=== PATIENT | female | born 2000 | race Caucasian/White ===

== ENCOUNTER 2020-06-27 20:19 | Emergency (ER) | payer SELFPAY ==
--- NOTE | 2020-06-27 21:45 | ER Document Report ---
ED Medical Screen (RME) - General Chief Complaint: Vaginal Bleeding Stated Complaint: VAGINAL BLEEDING-7 WEEKS PREG Time Seen by Provider: 06/27/20 21:41 Primary Care Provider: DONA RUGGIERO DO [Primary Care Provider] - Follow up as needed Information source: Patient Notes: Patient presents 7 weeks complaining of vaginal bleeding that started this evening. Patient is G1, P0 and has not had any care thus far. Patient denies any urinary symptoms. Patient denies any lightheadedness or dizziness. Patient does complain of pelvic cramping. Patient denies any significant medical history. I have greeted and performed a rapid initial assessment of this patient. A comprehensive ED assessment and evaluation of the patient, analysis of test results and completion of the medical decision making process will be conducted by additional ED providers. TRAVEL OUTSIDE OF THE [place] IN LAST 30 DAYS: No - Related Data Allergies/Adverse Reactions: No Known Allergies Allergy (Unverified 06/27/20 21:40) Past Medical History - General Last Menstrual Period: may 10- - Social History Frequency of alcohol use: None Drug Abuse: None Past Surgical History: Reports: Hx Tonsillectomy Physical Exam - Vital signs Vitals: Temp Pulse Resp BP Pulse Ox 98.1 F 84 16 135/87 H 100 06/27/20 21:29 06/27/20 21:29 06/27/20 21:29 06/27/20 21:29 06/27/20 21:29 - Abdominal Tenderness: Tender - Lower pelvic tenderness Course - Vital Signs Vital signs: Temp Pulse Resp BP Pulse Ox 98.1 F 84 16 135/87 H 100 06/27/20 21:29 06/27/20 21:29 06/27/20 21:29 06/27/20 21:29 06/27/20 21:29 Doctor's Discharge - Discharge Referrals: DONA RUGGIERO DO [Primary Care Provider] - Follow up as needed
--- NOTE | 2020-06-28 01:21 | RADIOLOGY REPORT (SQ) ---
Indication: vag bleeding Comparison: None available Technique: Both transabdominal and transvaginal ultrasound were performed of the pelvis. Transabdominal images provide a more complete overview of the pelvis, allowing visualization of anatomy and detection of pathology located beyond the field of view of transvaginal ultrasound. Transvaginal images provide superior resolution, facilitating improved characterization of pelvic structures and detection of pathology too small to be seen at transabdominal ultrasound. If both studies had not been performed, the likelihood of detecting and characterizing abnormalities relevant to the patients condition would have been substantially decreased. Findings: There is a single live intrauterine . [place] rump length of 0.81 cm corresponds with an estimated gestational age of 6 weeks 5 days. Cardiac activity seen with a heart rate of 126 bpm. It is too early to evaluate placental location or measure amniotic fluid index. Yolk sac identified. There is no significant free fluid in the pelvis. The right ovary and straight a presumed corpus luteal cyst measuring up to 9 mm.The right ovary measures 2.5 x 2.0 x 1.7 cm. The left ovary is not definitively identified. The cervix measures up to 3.1 cm. Impression: 1. Single live intrauterine with an estimated gestational age of 6 weeks 5 days. 2. Note, left ovary not identified on this exam.
[2020-06-28 03:57] VITALS: BP 110/72
--- NOTE | 2020-06-28 04:04 | ER Document Report ---
ED GI/ - General Chief Complaint: Vaginal Bleeding Stated Complaint: VAGINAL BLEEDING-7 WEEKS PREG Time Seen by Provider: 06/27/20 21:41 Primary Care Provider: [facility] [Provider Group] - Follow up in 1 week Notes: Patient is a 19-year-old female that comes emergency department chief complaint of vaginal bleeding/spotting that started earlier this evening. She had mild cramping but this then resolved. She denies any current symptoms. She denies injury, dysuria, flank pain, vomiting, fever. She states she had a positive home test and based on her menstrual cycle she is estimating 7 weeks gestation. She is not on any medications, does not take vitamins, denies any medical history. Mother is at bedside. TRAVEL OUTSIDE OF THE [place] IN LAST 30 DAYS: No - Related Data Allergies/Adverse Reactions: No Known Allergies Allergy (Unverified 06/27/20 21:40) Past Medical History - General Information source: Patient Last Menstrual Period: may 10- - Social History Smoking Status: Never Smoker Frequency of alcohol use: None Drug Abuse: None Lives with: Family Family History: Reviewed & Not Pertinent Past Surgical History: Reports: Hx Tonsillectomy Review of Systems - Review of Systems Constitutional: No symptoms reported EENT: No symptoms reported Cardiovascular: No symptoms reported Respiratory: No symptoms reported Gastrointestinal: No symptoms reported Genitourinary: No symptoms reported Female Genitourinary: See HPI Musculoskeletal: No symptoms reported Skin: No symptoms reported Hematologic/Lymphatic: No symptoms reported Neurological/Psychological: No symptoms reported Physical Exam - Vital signs Vitals: Temp Pulse Resp BP Pulse Ox 98.1 F 84 16 135/87 H 100 06/27/20 21:29 06/27/20 21:29 06/27/20 21:29 06/27/20 21:29 06/27/20 21:29 - Notes Notes: GENERAL: Alert, interacts well. No acute distress. HEAD: Normocephalic, atraumatic. EYES: Pupils equal, round, and reactive to light. Extraocular movements intact. ENT: Oral mucosa moist, tongue midline. Oropharynx unremarkable. Airway patent. LUNGS: Clear to auscultation bilaterally, no wheezes, rales, or rhonchi. No res piratory distress. Non-tender chest wall. HEART: Regular rate and rhythm. No murmur ABDOMEN: Soft, non-tender. Non-distended. Bowel sounds present in all 4 quadrants. GENITOURINARY: Deferred EXTREMITIES: Moves all 4 extremities spontaneously. No edema, normal radial and dorsalis pedis pulses bilaterally. No cyanosis. BACK: no cervical, thoracic, lumbar midline tenderness. No saddle anesthesia, no rmal distal neurovascular exam. Moves all extremities in full range of motion. NEUROLOGICAL: Alert and oriented x3. Normal speech. Cranial nerves II through XII grossly intact. Strength 5/5 in all extremities. PSYCH: Normal affect, normal mood. SKIN: Warm, dry, normal turgor. No rashes or lesions noted. Course - Re-evaluation Re-evalutation: Patient alert, well-appearing, vital signs unremarkable, abdomen soft and benign, patient with no current complaints, only had mild vaginal bleeding earlier in the setting of . Ultrasound shows a living intrauterine gestation, no acute findings. RhoGam is not indicated. hCG is appropriately elevated. CBC unremarkable. Discussed details with patient, discussed recommendations, [facility] follow-up, and return precautions at length. Patient and mother state appreciation and a greement. Stable, well-appearing, asymptomatic at time of discharge. - Vital Signs Vital signs: Temp Pulse Resp BP Pulse Ox 98.3 F 78 16 110/72 100 06/28/20 03:56 06/28/20 03:56 06/27/20 21:29 06/28/20 03:56 06/28/20 03:56 - Laboratory Result Diagrams: 06/28/20 04:02 Laboratory results interpreted by me: 06/28/20 06/28/20 04:02 04:02 RDW 15.5 H Beta HCG, Quant 57523.00 H Discharge - Discharge Clinical Impression: Vaginal bleeding affecting early Condition: Stable Disposition: HOME, SELF-CARE Additional Instructions: Your work-up shows a in the uterus with no concerning findings at this time. Your remaining work-up is really reassuring. Recommendation is pelvic rest because of the bleeding, avoid any significant physical activity (lifting, running, jumping, sexual intercourse, etc.) for the next 5 to 7 days or until cleared by [facility]. Start taking vitamins, it is important that you at least take folic acid, these are [id number]. Follow-up with the [facility] referral for additional monitoring and management. Return if you worsen including heavy bleeding, dizziness, passing out, severe pain, fever, or any other concerning or worsening symptoms. Forms: Special Work Note, Return to Work Referrals: [facility] [Provider Group] - Follow up in 1 week
[2020-06-28 04:23] LABS: ABSOLUTE EOSINOPHILS # (AUTO) 0.2 10^3/uL (0.0-0.6); ABSOLUTE LYMPHOCYTES (AUTO) 3.1 10^3/uL (0.5-4.7); ABSOLUTE MONOCYTES (AUTO) 0.8 10^3/uL (0.1-1.4); ABSOLUTE NEUT (AUTO) 6.1 10^3/uL (1.7-8.2); BASOPHILS % (AUTO) 0.4 % (0-2); EOSINOPHILS % (AUTO) 1.9 % (0-6); HEMATOCRIT 37.2 % (36.0-47.0); HEMOGLOBIN 12.7 g/dL (12.0-15.5); LYMPHOCYTES % (AUTO) 30.2 % (13-45); MEAN CORPUSCULAR HEMOGLOBIN 29.6 pg (27.0-33.4); MEAN CORPUSCULAR VOLUME 87 fl (80-97); MONOCYTES % (AUTO) 8.2 % (3-13); PLATELET COUNT 321 10^3/uL (150-450); RED BLOOD COUNT 4.27 10^6/uL (3.72-5.28); RED CELL DISTRIBUTION WIDTH 15.5 % (11.5-14.0); SEGMENTED NEUTROPHILS % (AUTO) 59.3 % (42-78); TOTAL CELLS COUNTED % (AUTO) 100 %; WHITE BLOOD COUNT 10.3 10^3/uL (4.0-10.5)
== END 2020-06-28 05:00 | disposition home or self-care (01) ==
LOC: ER 20:19
DX: O20.9 Hemorrhage in early pregnancy, unspecified (principal); Z3A.01 Less than 8 weeks gestation of pregnancy
CPT/HCPCS: 36415; 76817; 84702; 85025; 86900; 86901; 99284

== ENCOUNTER 2020-07-29 16:46 | Emergency (ER) | payer MEDICAID ==
--- NOTE | 2020-07-29 19:07 | ER Document Report ---
ED Medical Screen (RME) - General Stated Complaint: BLEEDING WITH Time Seen by Provider: 07/29/20 18:39 TRAVEL OUTSIDE OF THE [place] IN LAST 30 DAYS: No - HPI Notes: Patient is 19 y/o female who is 11 weeks and presents with vaginal bleeding that started this afternoon. She was seen in the ED 5 weeks ago for similar symptoms and had a RhoGam work-up completed which showed that she is O+ and RhoGam is not indicated. Patient also reports dysuria and a rash to her groin that started today. She was seen at urgent care for this and UA showed trace leukocyte esterase. She began to have vaginal bleeding while at the urgent care and they recommended that she come to the ED. She was diagnosed with a possible yeast infection last week and started Monistat 3 day suppository today. She also reports rectal pain for the past three days. Patient states she had constipation last week and she has a hx of hemorrhoids. She states her hemorrhoid pain usually resolved quickly where this pain has remained constant for the past three days. She reports mild hematochezia. Her last BM was today which was normal. - Related Data Allergies/Adverse Reactions: No Known Allergies Allergy (Unverified 06/27/20 21:40) Past Medical History Past Surgical History: Reports: Hx Tonsillectomy Physical Exam - Vital signs Vitals: Temp Pulse Resp BP Pulse Ox 98.2 F 87 20 128/71 H 100 07/29/20 16:59 07/29/20 16:59 07/29/20 16:59 07/29/20 16:59 07/29/20 16:59 - Abdominal Distension: No distension Bowel sounds: Normal Tenderness: Nontender Course - Re-evaluation Re-evalutation: I have greeted and performed a rapid initial assessment of this patient. A comprehensive ED assessment and evaluation of the patient, analysis of test results and completion of medical decision making process will be conducted by an additional ED providers. - Vital Signs Vital signs: Temp Pulse Resp BP Pulse Ox 98.2 F 87 20 128/71 H 100 07/29/20 16:59 07/29/20 16:59 07/29/20 16:59 07/29/20 16:59 07/29/20 16:59
--- NOTE | 2020-07-29 19:33 | RADIOLOGY REPORT (SQ) ---
EXAM DESCRIPTION: U/S [id number] TRNABD 1GES W/ODOP IMAGES COMPLETED DATE/TIME: 07/29/2020 7:18 pm REASON FOR STUDY: bleeding in COMPARISON: 06/28/2020 TECHNIQUE: Transabdominal static and realtime grayscale images acquired of the pelvis. Additional se lected spectral and color Doppler images recorded. All images stored on PACs. bHCG: Not applicable. CLINICAL DATES: LMP 05/09/2020 11 weeks 4 days LIMITATIONS: None. FINDINGS: FETUS: Single Living intrauterine . ULTRASOUND EGA: 12 weeks 0 days ULTRASOUND SANDEEP: 02/10/2021 EFW: Not applicable less than 20 weeks. CRL: 5.4 cm FHR: 162 beats per minute. SURVEY: Too early to assess. AMNIOTIC FLUID: Adequate amount. PLACENTA: Not yet developed due to early gestation. SUBCHORIONIC BLEED: No SIZE OF BLEED: Not applicable. UTERUS: No masses. No anomalies. CERVICAL LENGTH: 2 cm. Closed. RIGHT ADNEXA: Ovary not seen. No adnexal free fluid. No adnexal masses. LEFT ADNEXA: Ovary not seen. No adnexal free fluid. No adnexal masses. FREE FLUID: None. OTHER: No other significant finding. IMPRESSION: LIVING INTRAUTERINE . EGA 12 weeks 0 days. Trimester of : First trimester - 0 to 13 weeks. TECHNICAL DOCUMENTATION: JOB ID: [id number] 2010 [employer]- All Rights Reserved rev Reading location - IP/workstation name: [email or web address]
[2020-07-29 19:40] LABS: APPEARANCE,URINE CLEAR; BILIRUBIN,URINE NEGATIVE (NEGATIVE); COLOR,URINE YELLOW; GLUCOSE, URINE NEGATIVE (NEGATIVE); KETONES,URINE 20 mg/dL (NEGATIVE); LEUKOCYTE ESTERASE,URINE NEGATIVE (NEGATIVE); NITRITE,URINE NEGATIVE (NEGATIVE); PROTEIN,URINE NEGATIVE (NEGATIVE); URINE SPECIFIC GRAVITY 1.025; UROBILINOGEN,URINE NEGATIVE mg/dL (<2.0)
[2020-07-29 19:48] LABS: ABSOLUTE EOSINOPHILS # (AUTO) 0.1 10^3/uL (0.0-0.6); ABSOLUTE LYMPHOCYTES (AUTO) 1.8 10^3/uL (0.5-4.7); ABSOLUTE MONOCYTES (AUTO) 0.8 10^3/uL (0.1-1.4); ABSOLUTE NEUT (AUTO) 6.3 10^3/uL (1.7-8.2); BASOPHILS % (AUTO) 0.2 % (0-2); EOSINOPHILS % (AUTO) 1.1 % (0-6); HEMATOCRIT 36.9 % (36.0-47.0); HEMOGLOBIN 12.6 g/dL (12.0-15.5); MEAN CORPUSCULAR HEMOGLOBIN 29.9 pg (27.0-33.4); MEAN CORPUSCULAR HGB CONC 34.1 g/dL (32.0-36.0); MEAN CORPUSCULAR VOLUME 88 fl (80-97); MONOCYTES % (AUTO) 8.7 % (3-13); PLATELET COUNT 286 10^3/uL (150-450); RED CELL DISTRIBUTION WIDTH 15.2 % (11.5-14.0); TOTAL CELLS COUNTED % (AUTO) 100 %
[2020-07-29 20:12] LABS: CARBON DIOXIDE 25 mmol/L (22-30)
[2020-07-29 20:15] LABS: ANION GAP 9 (5-19); CHLORIDE 103 mmol/L (98-107)
[2020-07-29 20:17] LABS: ALBUMIN 4.3 g/dL (3.5-5.0); ALKALINE PHOSPHATASE 68 U/L (38-126); ASPARTATE AMINO TRANSFERASE 26 U/L (14-36); BILIRUBIN,TOTAL 0.2 mg/dL (0.2-1.3); BLOOD UREA NITROGEN 9 mg/dL (7-20); CALCIUM 10.3 mg/dL (8.4-10.2); GLUCOSE 96 mg/dL (75-110); POTASSIUM 4.7 mmol/L (3.6-5.0); TOTAL PROTEIN 7.4 g/dL (6.3-8.2)
--- NOTE | 2020-07-29 22:09 | ER Document Report ---
ED General - General Stated Complaint: BLEEDING WITH Time Seen by Provider: 07/29/20 18:39 Primary Care Provider: [facility] [Provider Group] - Follow up as needed TRAVEL OUTSIDE OF THE [place] IN LAST 30 DAYS: No - HPI Notes: Patient is 19 y/o female who is 11 weeks and presents with vaginal bleeding that started this afternoon. She was seen in the ED 5 weeks ago for similar symptoms and had a RhoGam work-up completed which showed that she is O+ and RhoGam is not indicated. Patient also reports dysuria and a rash to her groin that started today. She was seen at urgent care for this and UA showed trace leukocyte esterase. She began to have vaginal bleeding while at the urgent care and they recommended that she come to the ED. She was diagnosed with a possible yeast infection last week and started Monistat 3 day suppository today. She also reports rectal pain for the past three days. Patient states she had constipation last week and she has a hx of hemorrhoids. She states her hemorrhoid pain usually resolved quickly where this pain has remained constant f or the past three days. She reports mild hematochezia. Her last BM was today which was normal. - Related Data Allergies/Adverse Reactions: No Known Allergies Allergy (Unverified 06/27/20 21:40) Past Medical History - General Information source: Patient - Social History Smoking Status: Unknown if Ever Smoked Family History: Reviewed & Not Pertinent Past Surgical History: Reports: Hx Tonsillectomy Review of Systems - Review of Systems Constitutional: No symptoms reported EENT: No symptoms reported Cardiovascular: No symptoms reported Respiratory: No symptoms reported Gastrointestinal: See HPI Genitourinary: No symptoms reported Female Genitourinary: See HPI Musculoskeletal: No symptoms reported Skin: No symptoms reported Hematologic/Lymphatic: No symptoms reported Neurological/Psychological: No symptoms reported Physical Exam - Vital signs Vitals: Temp Pulse Resp BP Pulse Ox 98.2 F 87 20 128/71 H 100 07/29/20 16:59 07/29/20 16:59 07/29/20 16:59 07/29/20 16:59 07/29/20 16:59 - Notes Notes: PHYSICAL EXAMINATION: GENERAL: Well-appearing, well-nourished and in no acute distress. HEAD: Atraumatic, normocephalic. EYES: sclera anicteric, conjunctiva are normal. ENT: Moist mucous membranes. NECK: Normal range of motion LUNGS: Normal work of breathing. Lungs clear to auscultation bilaterally. No wheezing, rhonchi, or rales. HEART: Regular rate and rhythm. No murmurs noted. 2+ radial pulses bilaterally. ABDOMEN: Soft, nondistended, and nontender abdomen with active bowel sounds in all 4 quadrants. EXTREMITIES: no pitting or edema. No cyanosis. NEUROLOGICAL: No focal neurological deficits. Moves all extremities spo ntaneously and on command. PSYCH: Normal mood, normal affect. SKIN: Warm, Dry, normal turgor, no rashes or lesions noted. Course - Re-evaluation Re-evalutation: Patient is a 19-year-old female who is currently 11 weeks and presents with vaginal bleeding that began earlier today. Patient is O+ and does not require RhoGam. Vital signs are stable within normal limits. On exam, abdomen is soft and nontender with active bowel sounds in all 4 quadrants. CBC and CMP are unremarkable within normal limits. hCG quant is 59,051. UA shows minimally elevated ketones of 20 but negative leukocyte esterase and nitrites. US shows single, live intrauterine measuring 12 weeks. 07/29/20 22:00 Patient is asking for an update as she has been out in the waiting room and has not been brought back to a room due to a very busy emergency department. I discussed the results of her lab work and US as well as the need to bring the patient back to a room to perform a pelvic and rectal exam in order to asses her vaginal rash and rectal pain. Patient would like to go home and is declining both the pelvic and rectal. I will discharge patient home but discussed the importance of follow up with her PCP this week to have her symptoms further evaluated. Return precautions and follow up instructions given. Patient demonstrates decision making capacity. She understands and agrees with the plan. - Vital Signs Vital signs: Temp Pulse Resp BP Pulse Ox 98.6 F 68 16 120/74 98 07/29/20 22:57 07/29/20 22:57 07/29/20 22:57 07/29/20 22:57 07/29/20 22:57 - Laboratory Result Diagrams: 07/29/20 19:29 07/29/20 19:29 Laboratory results interpreted by me: 07/29/20 07/29/20 07/29/20 18:50 19:29 19:29 RDW 15.2 H Calcium 10.3 H Beta HCG, Quant 10260.00 H Urine Ketones 20 H Urine Ascorbic Acid 40 H - Diagnostic Test Radiology reviewed: Reports reviewed Radiology results interpreted by me: Obstetrics Ultrasound 07/29/20 18:56 IMPRESSION: LIVING INTRAUTERINE . EGA 12 weeks 0 days. Trimester of : First trimester - 0 to 13 weeks. Discharge - Discharge Clinical Impression: Vaginal bleeding during Qualifiers: Weeks of gestation: 12 weeks Qualified Code(s): Z3A.12 - 12 weeks gestation of Condition: Stable Disposition: HOME, SELF-CARE Additional Instructions: Your ultrasound today shows a living intrauterine . Please follow closely with your primary care GRIT BLASTER. Please return if you develop severe abdominal pain, bleeding that goes through more than 2 pads for more than 2 hours, pass out, or have any other symptoms that are concerning to you. Please follow-up closely with your OBGYN regarding todays visit. Forms: Return to Work Referrals: [facility] [Provider Group] - Follow up as needed
[2020-07-29 22:58] VITALS: BP 120/74
== END 2020-07-29 22:57 | disposition home or self-care (01) ==
LOC: ER 16:46
DX: O20.9 Hemorrhage in early pregnancy, unspecified (principal); O26.891 Other specified pregnancy related conditions, first trimester; R30.0 Dysuria; R21 Rash and other nonspecific skin eruption; O99.611 Diseases of the digestive system complicating pregnancy, first trimester; K62.89 Other specified diseases of anus and rectum; K92.1 Melena; Z3A.12 12 weeks gestation of pregnancy; Z87.19 Personal history of other diseases of the digestive system
CPT/HCPCS: 36415; 76801; 80053; 81001; 84702; 85025; 87086; 87088; 99284

== ENCOUNTER 2020-08-12 13:03 | Emergency (ER) | payer MEDICAID ==
[2020-08-12 13:30] VITALS: BP 106/71
--- NOTE | 2020-08-12 14:34 | ER Document Report ---
ED Medical Screen (RME) - General Chief Complaint: Back Pain Stated Complaint: LOW BACK PAIN Time Seen by Provider: 08/12/20 14:21 TRAVEL OUTSIDE OF THE [place] IN LAST 30 DAYS: No - HPI Notes: Patient is a 19 y/o female who is 14 weeks who presents for lightheadedness and low back pain. Patient states she was standing at work when she became lightheaded. She sat down and began to experience sharp pain to her low back. She denies vaginal bleeding. abdominal pain, vomiting and fever. She was seen for vaginal bleeding in the ED a few weeks ago and had an US done which showed an intrauterine . - Related Data Allergies/Adverse Reactions: No Known Allergies Allergy (Verified 08/12/20 14:17) Home Medications: pre Past Medical History Past Surgical History: Reports: Hx Tonsillectomy Physical Exam - Vital signs Vitals: Temp Pulse Resp BP Pulse Ox 98.0 F 94 19 106/71 100 08/12/20 13:25 08/12/20 13:25 08/12/20 13:25 08/12/20 13:25 08/12/20 13:25 - Abdominal Tenderness: Nontender - Back Back: Nontender Course - Re-evaluation Re-evalutation: I have greeted and performed a rapid initial assessment of this patient. A comprehensive ED assessment and evaluation of the patient, analysis of test results and completion of medical decision making process will be conducted by an additional ED providers. - Vital Signs Vital signs: Temp Pulse Resp BP Pulse Ox 98.0 F 94 19 106/71 100 08/12/20 13:25 08/12/20 13:25 08/12/20 13:25 08/12/20 13:25 08/12/20 13:25
[2020-08-12 15:03] LABS: ABSOLUTE LYMPHOCYTES (AUTO) 1.7 10^3/uL (0.5-4.7); ABSOLUTE MONOCYTES (AUTO) 0.5 10^3/uL (0.1-1.4); ABSOLUTE NEUT (AUTO) 6.1 10^3/uL (1.7-8.2); BASOPHILS % (AUTO) 0.3 % (0-2); EOSINOPHILS % (AUTO) 0.5 % (0-6); HEMATOCRIT 38.8 % (36.0-47.0); HEMOGLOBIN 13.2 g/dL (12.0-15.5); LYMPHOCYTES % (AUTO) 20.1 % (13-45); MEAN CORPUSCULAR HGB CONC 34.1 g/dL (32.0-36.0); MEAN CORPUSCULAR VOLUME 88 fl (80-97); MONOCYTES % (AUTO) 5.7 % (3-13); PLATELET COUNT 340 10^3/uL (150-450); RED BLOOD COUNT 4.42 10^6/uL (3.72-5.28); RED CELL DISTRIBUTION WIDTH 14.9 % (11.5-14.0); SEGMENTED NEUTROPHILS % (AUTO) 73.4 % (42-78); TOTAL CELLS COUNTED % (AUTO) 100 %; WHITE BLOOD COUNT 8.3 10^3/uL (4.0-10.5)
[2020-08-12 15:15] LABS: APPEARANCE,URINE CLEAR; BILIRUBIN,URINE NEGATIVE (NEGATIVE); COLOR,URINE STRAW; GLUCOSE, URINE NEGATIVE (NEGATIVE); KETONES,URINE NEGATIVE (NEGATIVE); LEUKOCYTE ESTERASE,URINE TRACE (NEGATIVE); NITRITE,URINE NEGATIVE (NEGATIVE); PROTEIN,URINE NEGATIVE (NEGATIVE); URINE SPECIFIC GRAVITY 1.002; UROBILINOGEN,URINE NEGATIVE mg/dL (<2.0)
[2020-08-12 15:18] LABS: ALBUMIN 4.6 g/dL (3.5-5.0); ALKALINE PHOSPHATASE 61 U/L (38-126); ANION GAP 11 (5-19); ASPARTATE AMINO TRANSFERASE 23 U/L (14-36); BILIRUBIN,TOTAL 0.5 mg/dL (0.2-1.3); BLOOD UREA NITROGEN 8 mg/dL (7-20); CALCIUM 10.6 mg/dL (8.4-10.2); CARBON DIOXIDE 22 mmol/L (22-30); CHLORIDE 105 mmol/L (98-107); GLUCOSE 84 mg/dL (75-110); POTASSIUM 4.8 mmol/L (3.6-5.0); TOTAL PROTEIN 7.9 g/dL (6.3-8.2)
--- NOTE | 2020-08-12 18:51 | ER Document Report ---
ED General - General Chief Complaint: Back Pain Stated Complaint: LOW BACK PAIN Time Seen by Provider: 08/12/20 14:21 Primary Care Provider: JUNE HAWKINS MD [Primary Care Provider] - Follow up as needed TRAVEL OUTSIDE OF THE [place] IN LAST 30 DAYS: No - HPI Notes: Patient is a 19 y/o female who is 14 weeks who presents for lightheadedness and low back pain. Patient states she was standing at work when she became lightheaded. She sat down and began to experience sharp pain to her low back. He denies any injury as well of saddle anesthesia, urinary and bowel incontinence. She denies vaginal bleeding. abdominal pain, vomiting and fever. She was seen for vaginal bleeding in the ED a few weeks ago and had an US done which showed an intrauterine . - Related Data Allergies/Adverse Reactions: No Known Allergies Allergy (Verified 08/12/20 14:17) Home Medications: pre Past Medical History - General Information source: Patient - Social History Smoking Status: Never Smoker Family History: Reviewed & Not Pertinent Patient has homicidal ideation: No Past Surgical History: Reports: Hx Tonsillectomy Review of Systems - Review of Systems Constitutional: No symptoms reported EENT: No symptoms reported Cardiovascular: No symptoms reported Respiratory: No symptoms reported Gastrointestinal: No symptoms reported Genitourinary: No symptoms reported Female Genitourinary: No symptoms reported Musculoskeletal: See HPI Skin: No symptoms reported Hematologic/Lymphatic: No symptoms reported Neurological/Psychological: See HPI Physical Exam - Vital signs Vitals: Temp Pulse Resp BP Pulse Ox 98.0 F 94 19 106/71 100 08/12/20 13:25 08/12/20 13:25 08/12/20 13:25 08/12/20 13:25 08/12/20 13:25 - Notes Notes: PHYSICAL EXAMINATION: VITALS: Vitals reviewed and within normal limits. GENERAL: Well-appearing, well-nourished and in no acute distress. HEAD: Atraumatic, normocephalic. EYES: Pupils equal, round, and reactive to light, extraocular movements intact, sclera anicteric, conjunctiva are normal. ENT: Nares patent. Moist mucous membranes. Oropharynx clear without exudates. NECK: Normal range of motion, supple without lymphadenopathy. LUNGS: Breath sounds clear to auscultation bilaterally and equal. No wheezes, rales, or rhonchi. HEART: Regular, rate, and rhythm without murmurs. ABDOMEN: Soft, nontender, normoactive bowel sounds. No guarding, no rebound. No masses appreciated. EXTREMITIES: Normal range of motion, no pitting or edema. No cyanosis. BACK: 5 out of 5 strength both distally and proximally bilateral lower extremities. 2+ patellar reflexes bilaterally. Sensation grossly intact in the bilateral lower extremities. Patient is able to ambulate without difficulty. NEUROLOGICAL: No focal neurological deficits. Moves all extremities spontaneously and on command. PSYCH: Normal mood, normal affect. SKIN: Warm, Dry, normal turgor, no rashes or lesions noted. Course - Re-evaluation Re-evalutation: Patient is a 19-year-old female who is 14 weeks who presents with lightheadedness and low back pain. She denies vaginal bleeding and abdominal cramping. Vital signs are stable within normal limits. On exam, no midline tenderness over bony prominences of vertebrae. Patient able to ambulate without difficulty. Based on history and physical, I have a very low suspicion of a concerning etiology of pain including epidural compression syndrome, spinal infection, transverse myelitis, malignancy, abdominal aortic aneurysm, renal colic, acute lower extremity claudication, neurogenic claudication, ankylosing spondylitis, or other intra-abdominal process. Due to absence of concerning risk factors in history and physical as well as absence of rapidly progressive, severe, or bilateral symptoms, will defer imaging at this point. Also since patient has had prior OB US done here in the ED within the past couple of weeks showing intrauterine , I have a very low suspicion of ectopic and will defer US at this point. CBC and CMP are within normal limits and unremarkable. UA shows trace leukocyte esterase with 2+ bacteria. Patient is requesting to leave before seeing a provider in the back and her uncle is being pulled off life support and she needs to drive to [place] immediately. Patient will be treated for asymptomatic bacteriuria with cephalexin. Advised patient to follow-up with her OB for further management of her back pain. I advised that she take Tylenol as needed for pain. Patient understands and agrees with the plan. Patient will be discharged home. - Vital Signs Vital signs: Temp Pulse Resp BP Pulse Ox 98.0 F 94 19 106/71 100 08/12/20 13:25 08/12/20 13:25 08/12/20 13:25 08/12/20 13:25 08/12/20 13:25 - Laboratory Result Diagrams: 08/12/20 14:38 08/12/20 14:38 Laboratory results interpreted by me: 08/12/20 08/12/20 08/12/20 14:38 14:38 14:38 RDW 14.9 H Calcium 10.6 H Ur Leukocyte Esterase TRACE H Discharge - Discharge Clinical Impression: Asymptomatic bacteriuria during Back pain Qualifiers: Back pain location: low back pain Chronicity: acute Back pain laterality: bilateral Sciatica presence: without sciatica Qualified Code(s): M54.5 - Low back pain Qualifiers: Weeks of gestation: 14 weeks Qualified Code(s): Z3A.14 - 14 weeks gestation of Condition: Stable Disposition: HOME, SELF-CARE Additional Instructions: Take the antibiotic as prescribed for your asymptomatic bacteriuria. Take Tyl enol as needed for back pain. Follow-up with your OB this week for work restrictions and management of your back pain. Prescriptions: Cephalexin [Cephalexin 500 MG Tablet] 500 mg PO BID 5 Days #10 tablet Referrals: JUNE HAWKINS MD [Primary Care Provider] - Follow up as needed
== END 2020-08-12 19:07 | disposition home or self-care (01) ==
LOC: ER 13:03
DX: O26.92 Pregnancy related conditions, unspecified, second trimester (principal); R82.71 Bacteriuria; R42 Dizziness and giddiness; M54.5 Low back pain; Z3A.14 14 weeks gestation of pregnancy
CPT/HCPCS: 36415; 80053; 81001; 85025; 99283